=== PATIENT | female | born 1950 | race Caucasian/White ===

== ENCOUNTER → 2020-10-09 | Outpatient (CLI) | payer MEDICARE, BC ==
[~2020-10-09] MED LIST: ESTRADIOL1 EAC4 TOP; FLONASE SPRAY; FOLIC ACID1 MG PO; METHOTREXATE T2.5 MG PO; OMNICEF 300 MG300 MG PO; TRIAMCINOLONE CREAM TOP; ZITHROMAX250 MG PO
== END ==
LOC: KOH-I 15:09
DX: J32.9 Chronic sinusitis, unspecified (principal); J43.9 Emphysema, unspecified
CPT/HCPCS: 70486; 71046

== ENCOUNTER → 2020-11-17 | Outpatient (CLI) | payer MEDICARE, BC ==
[2020-11-17 12:29] LABS: RED BLOOD COUNT 4.05 M/UL (4.00-5.10); WHITE BLOOD COUNT 2.8 K/UL (4.5-11.0)
== END ==
LOC: OPSV2 11:00
PROVIDERS: Anesthesiology
DX: Z01.812 Encounter for preprocedural laboratory examination (principal)
CPT/HCPCS: 36415; 85025

== ENCOUNTER → 2021-07-07 | Outpatient (CLI) | payer MEDICARE, BC | LOC: KOH-I 11:33 | DX: J43.9 Emphysema, unspecified (principal) | CPT/HCPCS: 71046 ==